=== PATIENT | female | born 1955 | race Hispanic/Latino ===

== ENCOUNTER 2021-09-04 18:20 | Emergency (ER) | payer SELFPAY ==
[2021-09-04] MEDS ORDERED: LIDOCAINE 1%/EPINEPHRINE 1:100,000 VIAL (20 ML) INFILTRATI SCH (18:45)
[2021-09-04] MEDS ORDERED: LIDOCAINE 2%/EPINEPHRINE 1:200,000 VIAL (20 ML) INFILTRATI ONE (18:56)
[2021-09-04] MEDS ORDERED: SODIUM CHLORIDE 0.9% IRR 500 ML BOTTLE IR ONE (19:07)
[2021-09-04] MEDS ORDERED: fentaNYL 100 MCG/2 ML INJ IV ONE (19:39)
[2021-09-04] MEDS ORDERED: ONDANSETRON 4 MG/2 ML INJ IV ONE (19:39)
[2021-09-04] MEDS ORDERED: SODIUM CHLORIDE 0.9% IRR 500 ML BOTTLE IR SCH (20:00)
[2021-09-04] MEDS ORDERED: TETANUS,DIPH,PERTUSS(ACELL) VACCINE 0.5 ML SYRINGE IM ONE (20:05)
[2021-09-04] MEDS ORDERED: KETOROLAC 30 MG/1 ML INJ IV ONE (20:05)
--- NOTE | 2021-09-04 20:29 | Emergency Department Report ---
- General Chief Complaint: Wound/Laceration Stated Complaint: LLE LACERATION Time Seen by Provider: 09/04/21 18:39 Source: patient, EMS Mode of arrival: Stretcher Limitations: Physical Limitation - History of Present Illness Initial Comments: 65-year-old female with no past medical history presents to the hospital for laceration to left anterior leg. She was walking her dog and he pulled away causing her to tripped over a pallet and scraped her leg resulting in laceration. She denies fall from significant height, head injury, LOC, or broken glass with significant debris entering the wound. Pain is moderate in intensity and worse with palpation and movement. Denies receiving tetanus in the last 10 years pmd [place] - Related Data Previous Rx's Medication Instructions Recorded Last Taken Type Ibuprofen [Motrin] 800 mg PO Q8HR PRN #20 tablet 09/04/21 Unknown Rx Neomycin/Bacit/Pmyxb/Lidocaine 1 applicatio TP DAILY 7 Days #1 09/04/21 Unknown Rx [Procomycin Cream] tube traMADoL [Ultram 50 MG tab] 50 mg PO Q6HR PRN #10 tablet 09/04/21 Unknown Rx Allergies Allergy/AdvReac Type Severity Reaction Status Date / Time bee venom protein (honey bee) Allergy Anaphylaxis Verified 09/04/21 18:41 ED Review of Systems ROS: Stated complaint: LLE LACERATION Other details as noted in HPI Comment: All other systems reviewed and negative ED Past Medical Hx - Medications Home Medications: Home Medications Medication Instructions Recorded Confirmed Last Taken Type Ibuprofen [Motrin] 800 mg PO Q8HR PRN #20 tablet 09/04/21 Unknown Rx Neomycin/Bacit/Pmyxb/Lidocaine 1 applicatio TP DAILY 7 Days #1 09/04/21 Unknown Rx [Procomycin Cream] tube traMADoL [Ultram 50 MG tab] 50 mg PO Q6HR PRN #10 tablet 09/04/21 Unknown Rx ED Physical Exam - General Limitations: Physical Limitation - Other Other exam information: General: No acute distress Head: Atraumatic Eyes: normal appearance ENT: Moist mucous membranes Neck: Normal appearance, no midline tenderness Chest: Clear to auscultation bilaterally CV: Regular rate and rhythm Abdomen: Soft, normal bowel sounds, nontender, nondistended, no rebound or guarding Back: Normal inspection Extremity: 10 cm laceration to distal left anterior leg with a flap. Initial small pulsatile bleeding which resolved with pressure dressing. Full range of motion of ankle and toes. 2+ DP pulse. Cap refill less than 2 seconds Neuro: Alert O x 3, no facial asymmetry, speech clear, no gross motor sensory deficit Psych: Appropriate behavior Skin: No rash ED Course Vital Signs 09/04/21 19:13 Respiratory 16 Rate - Laceration /Wound Repair Left Leg Wound Location: lower extremity Wound Length (cm): 10 Wound's Depth, Shape: flap Wound Explored: clean Irrigated w/ Saline (ccs): 500 Anesthesia: Lidocaine w/ Epi Volume Anesthetic (ccs): 10 Wound Repaired With: sutures Suture Size/Type: 4:0, proline Number of Sutures: 14 Layer Closure?: No Sterile Dressing Applied?: Yes ED Medical Decision Making - Medical Decision Making 65-year-old female with a laceration to the left leg. No suspicion for foreign body. Full range of motion. Hemostasis achieved prior to laceration repair. Tetanus provided. Nurse instructed to provide wound dressing with antibiotic ointment. Outpatient follow-up advised for suture removal in 10 to 14 days Critical Care Time: No Critical care attestation.: If time is entered above; I have spent that time in minutes in the direct care of this critically ill patient, excluding procedure time. ED Disposition Clinical Impression: Laceration of left leg Disposition: 01 HOME / SELF CARE / HOMELESS Is pt being admited?: No Does the pt Need Aspirin: No Condition: Stable Instructions: Sutures, [place], or Adhesive Wound Closure Additional Instructions: Take the medication as prescribed. Follow-up with your doctor or doctor/clinic provided. Return if symptoms worsen as indicated by your discharge instructions. HAVE STITCHES REMOVED IN 10-14 DAYS. YOU MAY RETURN TO ER OR FOLLOW UP IN THE [facility] YOU RECEIVED A TETANUS SHOT TODAY Prescriptions: Ibuprofen [Motrin] 800 mg PO Q8HR PRN #20 tablet PRN Reason: Pain, Moderate (4-6) Neomycin/Bacit/Pmyxb/Lidocaine [Procomycin Cream] 1 applicatio TP DAILY 7 Days #1 tube traMADoL [Ultram 50 MG tab] 50 mg PO Q6HR PRN #10 tablet PRN Reason: Pain , Severe (7-10) Referrals: YOUR, DOCTOR [Other] - 09/15/21 (HAVE STICHES REOMED IN 10-14 DAYS) Time of Disposition: 20:27
[2021-09-04] MEDS ORDERED: BACITRACIN/POLYMYXIN B OINT 28.35 GM TP ONE (20:31)
[2021-09-04 22:16] VITALS: BP 138/82
== END 2021-09-04 22:20 | disposition home or self-care (01) ==
LOC: ED 18:20
DX: S81.812A Laceration without foreign body, left lower leg, initial encounter (principal); X58.XXXA Exposure to other specified factors, initial encounter; Y93.89 Activity, other specified; Y92.89 Other specified places as the place of occurrence of the external cause; Y99.8 Other external cause status
CPT/HCPCS: 12004; 90471; 90715; 96374; 96375; 99283; J1885; J2405; J3010; J3490